=== PATIENT | female | born 1965 | race Caucasian/White ===

== ENCOUNTER 2023-07-12 15:44 | Outpatient (AMB) | payer BC, SELFPAY ==
--- NOTE | 2023-07-12 15:59 | MHC.OFFWIV ---
Intake Vital Signs 07/12/23 16:03 Height 5 ft 1 in Weight 110 lb BMI 20.8 BP 118/66 Blood Pressure Location Rt brachial Position Sitting Pulse 88 Pulse Source Pulse Oximeter Temp 98.6 F Temp Source Oral Pulse Oximetry (%) 98 Oxygen Delivery Method Room Air Intake Visit Reasons: ear blocked had cold last week Intake Note: pt is here for ear blockage since for the past few days Patient Tobacco Use Status: Never used Tobacco Allergies No Known Allergies Allergy (Verified 07/12/23 16:03) Do you need a note to return to daycare/school/sports/work: No HPI HPI Comments History of Present Illness Details Patient is a 58yo F who presents with blocked ears Had cold last week States ears feel full No pain, 0/10 No fever or chills + remaining post nasal drip No cough Going on airplane in one week and wants to ensure fluid is gone PFSH Social History Patient Tobacco Use Status: Never used Tobacco Review of Systems Const Denies chills and Denies fever(s) ENT Denies ear discharge, Denies otalgia, Reports nasal congestion, Denies sore throat and Reports other (blocked ears) Card Denies chest pain and Denies dyspnea Resp Denies cough and Denies dyspnea Physical Exam Vital Signs: Last Vital Signs Temp 98.6 F 07/12/23 16:03 Pulse 88 07/12/23 16:03 BP 118/66 07/12/23 16:03 Pulse Ox 98 07/12/23 16:03 Oxygen Delivery Method Room Air 07/12/23 16:03 BMI result Body Mass Index 20.8 General: Non-toxic, NAD. Speaking full sentences. Skin: Warm dry throughout Eye: EOMI HENT: Airway patent. Uvula midline. No pharyngeal erythema or edema. No [employer]. Bilateral canals clear. Fluid behind L TM. None noted to R. TM non-erythematous, non-bulging. No TM perforation or hemotympanum noted. Respiratory: CTA bilaterally. No wheezes, rales or rhonchi Cardiac: RRR. No murmur MSK: Full ROM extremities. Neurology: A/O. No aphasia or facial droop. Gait without abnormality Psych: Good mood and affect Assessment & Plan Assessment & Plan (1) Eustachian tube dysfunction: Code(s): H69.90 - Unspecified Eustachian tube disorder, unspecified ear Qualifiers: Laterality: left Qualified Code(s): H69.92 - Unspecified Eustachian tube disorder, left ear Plan: Patient seen and evaluated. No OM or OE Prednisone (pt has taken in past and tolerated well) With food. no alcohol or nsaids Patient gave verbal understanding and had no additional questions or concerns at time of discharge All questions answered Medications: New prednisone 40 mg (2 x 20 mg) PO DAILY 8 tabs 0RF Coding Level of Care Code Est Pt Level 3 (59606) Diagnoses Dysfunction of left eustachian tube H69.92 Laterality: left
[2023-07-12 16:03] VITALS: BP 118/66; PULSE 88; TEMP 37; O2SAT 98; BMI 20.8
== END 2023-07-12 16:47 | disposition home or self-care (01) ==
PROVIDERS: Visit Provider Physician Assistant
DX: H69.92 Unspecified Eustachian tube disorder, left ear (principal)
CPT/HCPCS: 99213